=== PATIENT | female | born 1940 | race Caucasian/White ===

== ENCOUNTER → 2023-06-19 11:12 | Outpatient (REF) | payer MEDICARE, OTHER, SELFPAY | LOC: HWRAD 11:12 | PROVIDERS: ATTENDING PHYSICIAN Internal Medicine Geriatric Medicine | DX: K59.00 Constipation, unspecified (principal); I82.402 Acute embolism and thrombosis of unspecified deep veins of left lower extremity; Z48.815 Encounter for surgical aftercare following surgery on the digestive system | CPT/HCPCS: 71250; 74176 ==

== ENCOUNTER → 2023-10-19 10:51 | Outpatient (REF) | payer MEDICARE, OTHER, SELFPAY ==
[2023-10-19 12:18] LABS: % Basophils 0.5 % (0-2); % Eosinophils 2.8 % (0-6); % Immature Granulocytes 0.2 % (0-0.5); % Lymphocytes 23.8 % (20.5-51.1); % Monocytes 8.4 % (1.7-9.3); % Neutrophils 64.3 % (42.2-75.2); Absolute Eosinophils 0.1 10^3/uL (0-0.7); Absolute Monocytes 0.4 10^3/uL (0.1-0.6); Absolute Neutrophils 2.8 10^3/uL (1.4-6.5); Hematocrit 34.3 % (37.0-47.0); Hemoglobin 11.3 g/dL (12.0-16.0); Mean Corp Hgb Conc. 32.9 g/dL (33.0-37.0); Mean Corpuscular Hgb 32.4 pg (27.0-31.0); Mean Corpuscular Volume 98.3 fL (81.0-99.0); Mean Platelet Volume 8.8 fL (7.4-10.4); Nucleated Red Blood Cells % 0 %; Platelet Count 173 10^3/uL (130-400); Red Blood Cell Count 3.49 10^6/uL (4.20-5.40); Red Cell Dist. Width 14.2 % (11.5-14.5); White Blood Cell Count 4.3 10^3/uL (4.8-10.8)
[2023-10-19 12:44] LABS: ALT (SGPT) 16 U/L (0-35); AST (SGOT) 20 U/L (14-36); Albumin 3.5 g/dl (3.5-5.0); Alkaline Phosphatase 58 U/L (38-126); Blood Urea Nitrogen 28 mg/dl (7-17); Calcium 9.2 mg/dl (8.4-10.2); Carbon Dioxide 30 mmol/L (22-30); Chloride 102 mmol/L (98-107); Glucose 78 mg/dl (70-99); HDL Cholesterol 63 mg/dl; LDL Cholesterol, Calculated 88 mg/dl; Potassium 4.7 mmol/L (3.5-5.1); Sodium 135 mmol/L (135-145); Total Bilirubin 0.4 mg/dl (0.2-1.3); Total Cholesterol 171 mg/dl (50-199); Total Protein 5.6 g/dl (6.3-8.2); Triglyceride 104 mg/dl (10-149); Very Low Density Lipoprotein 20 mg/dl (0-30)
[2023-10-19 13:02] LABS: Vitamin D, 25-OH*** 49.1 ng/mL (30-80)
== END ==
LOC: OLABN 10:51
PROVIDERS: ATTENDING PHYSICIAN Internal Medicine Geriatric Medicine
DX: I10 Essential (primary) hypertension (principal); E78.5 Hyperlipidemia, unspecified; E55.9 Vitamin D deficiency, unspecified
CPT/HCPCS: 36415; 80053; 80061; 82306; 85025

== ENCOUNTER → 2023-10-25 10:06 | Outpatient (REF) | payer MEDICARE, OTHER, SELFPAY ==
[2023-10-25 10:48] LABS: Hematocrit 33.9 % (37.0-47.0); Hemoglobin 10.6 g/dL (12.0-16.0); Mean Corp Hgb Conc. 31.3 g/dL (33.0-37.0); Mean Corpuscular Hgb 31.5 pg (27.0-31.0); Mean Corpuscular Volume 100.9 fL (81.0-99.0); Mean Platelet Volume 8.9 fL (7.4-10.4); Platelet Count 169 10^3/uL (130-400); Red Blood Cell Count 3.36 10^6/uL (4.20-5.40); White Blood Cell Count 4.6 10^3/uL (4.8-10.8)
== END ==
LOC: OLABN 10:06
PROVIDERS: ATTENDING PHYSICIAN Internal Medicine Geriatric Medicine
DX: D64.9 Anemia, unspecified (principal)
CPT/HCPCS: 36415; 85027

== ENCOUNTER → 2024-04-18 09:35 | Outpatient (REF) | payer MEDICARE, OTHER, SELFPAY ==
[2024-04-18 10:21] LABS: % Basophils 0.2 % (0-2); % Eosinophils 2.1 % (0-6); % Immature Granulocytes 0.2 % (0-0.5); % Lymphocytes 25.9 % (20.5-51.1); % Neutrophils 62.6 % (42.2-75.2); Absolute Eosinophils 0.1 10^3/uL (0-0.7); Absolute Lymphocytes 1.2 10^3/uL (1.2-3.4); Absolute Monocytes 0.4 10^3/uL (0.1-0.6); Absolute Neutrophils 2.9 10^3/uL (1.4-6.5); Hematocrit 35.3 % (37.0-47.0); Hemoglobin 11.1 g/dL (12.0-16.0); Mean Corp Hgb Conc. 31.4 g/dL (33.0-37.0); Mean Corpuscular Hgb 32.1 pg (27.0-31.0); Mean Platelet Volume 9.1 fL (7.4-10.4); Nucleated Red Blood Cells % 0 %; Platelet Count 189 10^3/uL (130-400); Red Blood Cell Count 3.46 10^6/uL (4.20-5.40); White Blood Cell Count 4.7 10^3/uL (4.8-10.8)
[2024-04-18 10:36] LABS: ALT (SGPT) 22 U/L (0-35); AST (SGOT) 19 U/L (14-36); Albumin 3.4 g/dl (3.5-5.0); Alkaline Phosphatase 37 U/L (38-126); Blood Urea Nitrogen 25 mg/dl (7-17); Calcium 8.8 mg/dl (8.4-10.2); Carbon Dioxide 28 mmol/L (22-30); Chloride 105 mmol/L (98-107); Glucose 87 mg/dl (70-99); HDL Cholesterol 63 mg/dl; LDL Cholesterol, Calculated 81 mg/dl; Potassium 5.1 mmol/L (3.5-5.1); Sodium 139 mmol/L (135-145); Total Bilirubin 0.4 mg/dl (0.2-1.3); Total Cholesterol 162 mg/dl (50-199); Total Protein 5.4 g/dl (6.3-8.2); Triglyceride 92 mg/dl (10-149); Very Low Density Lipoprotein 18 mg/dl (0-30); eGFR > 60.00
[2024-04-18 10:50] LABS: Vitamin D, 25-OH*** 46.7 ng/mL (30-80)
== END ==
LOC: OLABN 09:35
PROVIDERS: ATTENDING PHYSICIAN Internal Medicine Geriatric Medicine
DX: I10 Essential (primary) hypertension (principal); E78.5 Hyperlipidemia, unspecified; E55.9 Vitamin D deficiency, unspecified
CPT/HCPCS: 36415; 80053; 80061; 82306; 85025

== ENCOUNTER → 2024-05-14 07:22 | Outpatient (REF) | payer MEDICARE, OTHER, SELFPAY | LOC: RAD 07:22 | PROVIDERS: ATTENDING PHYSICIAN Internal Medicine Geriatric Medicine | DX: I73.9 Peripheral vascular disease, unspecified (principal) | CPT/HCPCS: 93922; 93925 ==

== ENCOUNTER 2024-05-20 11:52 | Day surgery (SDC) | payer MEDICARE, OTHER, SELFPAY ==
[2024-05-20] VITALS (10 sets, daily range): BP systolic 109–156; BP diastolic 36–86; BMI 37.4
[2024-05-20 12:41] LABS: Hematocrit 40.5 % (37.0-47.0); Hemoglobin 12.7 g/dL (12.0-16.0); Mean Corp Hgb Conc. 31.4 g/dL (33.0-37.0); Mean Corpuscular Hgb 31.8 pg (27.0-31.0); Mean Corpuscular Volume 101.5 fL (81.0-99.0); Mean Platelet Volume 8.5 fL (7.4-10.4); Platelet Count 198 10^3/uL (130-400); Red Blood Cell Count 3.99 10^6/uL (4.20-5.40); Red Cell Dist. Width 13.7 % (11.5-14.5); White Blood Cell Count 5.4 10^3/uL (4.8-10.8)
[2024-05-20] MEDS: NSS 287 ML IV (12:52)
--- NOTE | 2024-05-20 12:58 | PTCARENOTE ---
Patient recd from [facility], accompanied by daughter, via ambulance transport, several personal blankets on patient and still co of cold gave more warm blankets that were applied to upper and lower extremity and pillow place under
legs at pt's request, lungs clear, pt obese and complete care noted, CVA and flaccid left side, Patient IS AAOX3 and making all requests and needs known, daughter remains at bedside. VSS, fluid infusing via left IV, B/L Lower extremity with edema
and reddened in color, without co of pain or discomfort. Pending procedure for angio with DR Santana, call light within reach of pt while in recovery.
[2024-05-20 13:00] LABS: APTT 23.3 Sec (23.4-35.0); INR 1.01; PT 13.6 Sec (11.4-14.6)
[2024-05-20 13:02] LABS: Blood Urea Nitrogen 21 mg/dl (7-17); Calcium 9.3 mg/dl (8.4-10.2); Carbon Dioxide 29 mmol/L (22-30); Chloride 99 mmol/L (98-107); Estimated Creatinine Clearance 58 ml/min; Glucose 139 mg/dl (70-99); Potassium 4.5 mmol/L (3.5-5.1); Sodium 135 mmol/L (135-145); eGFR > 60.00
--- NOTE | 2024-05-20 14:00 | PTCARENOTE ---
Patient incontinent of urine. Adult diaper/pull up removed and pericare provided. No skin breakdown noted. Purewick external female catheter applied.
--- NOTE | 2024-05-20 14:20 | PTCARENOTE ---
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 Patient said she gets a rash. Patient denies allergy to IV contrast. Patient was premedicated with Methylprednisolone 32 mg PO & Benadryl 50mg PO [facility] at 0930. ABENA Fontenot & Beny Abad, Anesthesiologist aware. No additional orders given at this time.
--- NOTE | 2024-05-20 14:41 | W.SUR.PREOP ---
Pre-Operative Surgical Note
-
I have examined this patient prior to the performance of the scheduled procedure.
The patient's condition is unchanged from the time of the current History and
Physical and the patient is able to undergo the scheduled procedure.
--- NOTE | 2024-05-20 17:14 | W.IMMPOSTOP ---
Surgical Immed Post Op Note
-
Primary Surgeon: Max
Assisting Surgeon: Miya
Pre-op Diagnosis: Chronic limb ischemia
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
Procedure Performed: Diagnostic angiogram
Anesthesia Type: Sedation/local
Specimen / Cultures: None
Estimated Blood Loss: 10 cc
Complications: None
Operative Findings: Microvascular disease with no focal stenotic lesions in L foot. No intervention performed.
--- NOTE | 2024-05-20 17:32 | OR.RPT ---
Operative Report
Operative Report
Date of Operation: 05/20/2024
Pre Op Diagnosis: Nonhealing left hallux ulcer
Post Op Diagnosis: Nonhealing left hallux ulcer
Procedure:
1.) Selective catheterization of third order left lower extremity arteries (superficial femoral, popliteal, anterior tibial and posterior tibial)
2.) Diagnostic aortobiiliac arteriogram
3.) Diagnostic left lower extremity arteriogram
4.) Ultrasound-guided percutaneous access to the right common femoral artery
Surgeon: Zach Santana III, MD
Utility Systems Repairer Operator: Jarad Holliday MD PGY1
Anesthesia: Sedation with local
Fluoroscopy:
17.5 min
139 mGy
40.29 Gy.cm2
Complications: None
Estimated Blood Loss: Less than 10 cc
History and Indications for Procedure: 84-year-old female nonambulatory halfway patient with nonhealing left hallux ulceration
Procedure in Detail: Faith Krueger was correctly identified and placed supine on the operating table. After adequate induction of anesthesia the bilateral groins were prepped and draped in the usual sterile fashion. A timeout was performed with
the nursing and anesthesia staff confirming the patient's identity as well as the nature and laterality of the procedure.
The right common femoral artery was identified under ultrasound guidance. The artery was patent. The superior and inferior aspects of the femoral head were identified with radiographic guidance and marked at the skin level. The proposed puncture
site was infiltrated with local anesthesia. Under ultrasound guidance we accessed the right common femoral artery with a micropuncture needle and upsized to a 5 Fr sheath over a Bentson wire. The wire and a ShepherAuctionata hook flush catheter were
advanced into the distal abdominal aorta and a diagnostic aorto-biiliac arteriogram was performed:
AORTO-ILIAC ARTERIOGRAM:
Aorta: Patent with no significant stenosis identified
Right common iliac artery: Patent with no significant stenosis identified
Right external iliac artery: Patent with no significant stenosis identified
Left common iliac artery: Patent with no significant stenosis identified
Left external iliac artery: Patent with no significant stenosis identified
Under roadmap guidance using a Glidewire and the Shepherds hook catheter we selected the left common iliac artery and then the external iliac artery. A catheter was tracked up and over the aortic bifurcation and placed in the distal external iliac
artery. A diagnostic left lower extremity arteriogram was then performed which demonstrated the following:
LEFT LOWER EXTREMITY:
Common femoral artery: Patent with no significant stenosis identified
Profunda femoral artery: Patent with no significant stenosis identified
Superficial femoral artery: Patent with no significant stenosis identified
Popliteal artery: Patent with no significant stenosis identified
Anterior tibial artery: Patent. High takeoff from the popliteal artery behind the knee at the level of the tibial plateau. No significant stenosis identified. Small vessel disease identified in the foot.
Tibioperoneal trunk: Patent with no significant stenosis identified
Peroneal artery: Diffusely small diameter. Patent to the ankle. Sluggish flow.
Posterior tibial artery: Patent. No significant stenosis identified. Small vessel disease identified in the foot.
In an effort to more clearly evaluate the tibial arteries as well as examine flow into the foot I proceeded as follows: Systemic heparin was administered. A WellFXq wire was advanced into the superficial femoral artery and popliteal through the
latham's hook catheter. A 5 Thai 90 cm sheath was then brought up and over the aortic bifurcation and the radiopaque tip was positioned in the popliteal artery behind the knee.
Using a Quickcross catheter and Glidewire under roadmap guidance I then selected the anterior tibial artery. The wire and catheter were advanced to the distal anterior tibial artery and an arteriogram was performed. The anterior tibial artery was
patent. The artery crossed the ankle into the foot. It appeared that the artery then occluded and that the dorsalis pedis artery was occluded with no distal reconstitution. Small branches were patent into the foot which communicated with plantar
branches from the posterior tibial artery. No intervention was performed.
I then pulled the catheter back into the popliteal artery. Once again using a Quickcross catheter and Glidewire under roadmap guidance I selected the tibioperoneal trunk and then the posterior tibial artery. The catheter tip was positioned in the
proximal posterior tibial artery. An arteriogram was performed which demonstrated patency of the tibioperoneal trunk and posterior tibial artery with no significant stenosis identified. The artery continued into the foot and there was a single
dominant plantar branch identified which supplied flow to the forefoot and hallux. Digital branches were identified from this plantar branch distribution. No intervention was performed.
Satisfied with this diagnostic result we concluded the procedure. The sheath tip was pulled back into the right external iliac artery. Protamine was administered. The sheath was pulled and direct manual pressure was held over the puncture site.
Hemostasis was achieved. A sterile dressing was applied.
The patient tolerated the procedure well and was taken to the recovery area in stable condition.
Attestation: I was present and responsible for the entire procedure.
Signed:
Zach Santana III, MD
[facility] Vascular Surgery
[phone] (cwus)
[2024-05-20] MEDS: CYMBALTA DELAYED RELEASE 30 MG PO (19:32)
[2024-05-20] MEDS: LIPITOR 40 MG PO (19:32)
[2024-05-20] MEDS: PEPCID 20 MG PO (19:32)
[2024-05-20] MEDS: DESYREL 50 MG PO (21:33)
[2024-05-20] MEDS: NEURONTIN 400 MG PO (21:33)
[2024-05-20] MEDS: LIORESAL 5 MG PO (21:33)
[2024-05-20] MEDS: ULTRAM 25 MG PO (21:33)
[2024-05-21 03:02] VITALS: BP 123/70
[2024-05-21 04:53] VITALS: BMI 37.4
[2024-05-21] MEDS: ULTRAM 25 MG PO (05:35)
[2024-05-21 06:59] VITALS: BP 134/71
[2024-05-21 07:04] LABS: Blood Urea Nitrogen 27 mg/dl (7-17); Calcium 8.7 mg/dl (8.4-10.2); Carbon Dioxide 27 mmol/L (22-30); Chloride 102 mmol/L (98-107); Estimated Creatinine Clearance 51 ml/min; Glucose 132 mg/dl (70-99); Potassium 4.6 mmol/L (3.5-5.1); Sodium 138 mmol/L (135-145); eGFR > 60.00
--- NOTE | 2024-05-21 07:15 | W.PN.VS ---
Today's Communication / Plan
-
See below.
Assessment/Plan
-
Assessment: 84-year-old female POD #1 Selective catheterization of third order left lower extremity arteries (superficial femoral, popliteal, anterior tibial and posterior tibial), Diagnostic aortobiiliac arteriogram, Diagnostic left lower extremity
arteriogram, Ultrasound-guided percutaneous access to the right common femoral artery who required overnight stay for observation due to care home unable to provide medical transport back to facility following SDS procedure.
Plan:
Discharge to care home facility
Follow-up ultrasound and appointment placed in discharge instructions
Subjective Data
-
Date of Service: May 21, 2024
Patient seen and examined at bedside, offers no complaints. Requesting discharge as soon as possible. Denies pain at right groin puncture site. Denies nausea, vomiting, fever, and chills.
Objective Data
-
Vital Signs
Temp Pulse Resp BP Pulse Ox
98.1 F 102 18 134/71 94
05/21/24 06:59 05/21/24 06:59 05/21/24 06:59 05/21/24 06:59 05/21/24 06:59
Intake and Output
05/20/24 05/21/24 05/22/24
06:59 06:59 06:59
Intake Total 640 / 640
Output Total 475 / 475
Balance 165 / 165
Intake:
Oral fluids 240 / 240
IV fluids (Total) 400 / 400
NSS 100 / 100
Output:
Urine, Voided 475 / 475
Other:
Number of approximated SMALL 1
amounts of urine
How many times incontinent 1
SATURATED amount urine
Lab Results
05/21/24 04:50
Calcium 8.7 mg/dl (8.4-10.2) 05/21/24 04:50
Physical Exam
-
No apparent distress, resting in bed comfortably
No dyspnea on room air
ABD rotund, nontender, nondistended
Right groin puncture site CDI, no evidence of hematoma, all surrounding warm and soft
Bilateral feet warm, left foot dressing CDI
[2024-05-21 07:37] LABS: Hematocrit 38.1 % (37.0-47.0); Hemoglobin 12.2 g/dL (12.0-16.0); Mean Corpuscular Hgb 31.8 pg (27.0-31.0); Mean Corpuscular Volume 99.2 fL (81.0-99.0); Mean Platelet Volume 8.7 fL (7.4-10.4); Platelet Count 254 10^3/uL (130-400); Red Blood Cell Count 3.84 10^6/uL (4.20-5.40); Red Cell Dist. Width 14.3 % (11.5-14.5); White Blood Cell Count 9.5 10^3/uL (4.8-10.8)
[2024-05-21] MEDS: ZESTRIL 10 MG PO (07:54)
[2024-05-21] MEDS: LIORESAL 5 MG PO (07:55)
[2024-05-21] MEDS: PEPCID 20 MG PO (07:55)
[2024-05-21] MEDS: NEURONTIN 300 MG PO (07:55)
--- NOTE | 2024-05-21 09:18 | CM ---
Patient seen at bedside
IA Completed.
Outpatient Status
s/p Procedure:
1.) Selective catheterization of third order left lower extremity arteries (superficial femoral, popliteal, anterior tibial and posterior tibial)
2.) Diagnostic aortobiiliac arteriogram
3.) Diagnostic left lower extremity arteriogram
4.) Ultrasound-guided percutaneous access to the right common femoral artery
Patient [facility] resident of [facility], non-ambulatory, wheelchair
Mandeep WELLER, DME: wheelchair, walker
PCP: Mavis Shah
Pharmacy: [facility]
PLAN: Discharge today to [facility] in admissions notified of time
[facility]
Report #: [phone]
Fax #: [phone]
Ambulance forms on chart - 12:30pm transport
[2024-05-21 10:56] VITALS: BP 144/87
== END 2024-05-21 13:00 ==
LOC: CATH 11:52
PROVIDERS: Nurse Practitioner Acute Care; ATTENDING PHYSICIAN Surgery Vascular Surgery; FAMILY PHYSICIAN Internal Medicine Geriatric Medicine
DX: I70.245 Atherosclerosis of native arteries of left leg with ulceration of other part of foot (principal); Z79.899 Other long term (current) drug therapy; Z86.73 Personal history of transient ischemic attack (TIA), and cerebral infarction without residual deficits; I48.91 Unspecified atrial fibrillation; Z86.718 Personal history of other venous thrombosis and embolism
CPT/HCPCS: 36247; 75625; 75716; 80048; 85027; 85610; 85730; 87070; 93005; C1769; C1894; Q9967

== ENCOUNTER → 2024-07-14 08:47 | Outpatient (REF) | payer MEDICARE, OTHER, SELFPAY | LOC: RAD 08:47 | PROVIDERS: ATTENDING PHYSICIAN Registered Nurse; FAMILY PHYSICIAN Internal Medicine Geriatric Medicine | DX: I70.245 Atherosclerosis of native arteries of left leg with ulceration of other part of foot (principal) | CPT/HCPCS: 93922; 93925 ==

== ENCOUNTER 2024-09-02 17:56 | Emergency (ER) | payer MEDICARE, OTHER, SELFPAY ==
[2024-09-02 18:03] VITALS: BP 125/57
--- NOTE | 2024-09-02 18:57 | ED.GENMED ---
History of Present Illness
General
Chief Complaint: Musculo-Skeletal Complaint
Time Seen by Provider: 09/02/24 18:28
History of Present Illness
History of Present Illness:
Patient is a 84-year-old woman presenting to the emergency department with concern for tib-fib fracture. Patient states that she lives in [facility]. She is a full assist. I did transfer her to use the bathroom. Patient does not ambulate.
She states that her leg was hit by a Kalpesh lift she had pain since then. Initially declined x-rays however with ongoing pain they obtain x-rays at [facility]. Per the paperwork that patient arrived with her x-ray of her knee was unremarkable.
X-ray of the ankle did show a distal tib-fib fracture with no displacement. Patient denies any numbness tingling. Very mild pain.
Past History
Past History
ED Past Medical History: CHF and HTN
ED Past Surgical History: Bowel resection
Social History
Tobacco: Non-smoker
Alcohol: None
Phy Exam
Physical Exam
Physical Exam:
GENERAL: in no acute distress
HEENT: normocephalic, extraocular movements intact, moist oral mucosa
NECK: normal inspection
RESPIRATORY: no respiratory distress, clear to auscultation bilaterally
CARDIOVASCULAR: regular rate and rhythm
ABDOMEN/: soft, non-distended, non-tender to palpation, no rebound or guarding
EXTREMITIES: Bilateral lower extremity with swelling, mild tenderness to the left ankle
NEUROLOGIC: awake and alert, moves all extremities
SKIN: warm
Course
Orders/Labs/Results
Orders:
Orders
09/02/24 18:30
Splints/Slings/Crut- Treatment ONCE
Location: Left
Type of Splint: Short Leg
Comment: short and sugar tong
Vital Signs
Initial and Last Documented VS:
Initial Vital Signs
Temp Pulse Resp BP Pulse Ox
97.9 F 78 16 125/57 98
09/02/24 18:03 09/02/24 18:03 09/02/24 18:03 09/02/24 18:03 09/02/24 18:03
Last Documented Vital Signs
Temp Pulse Resp BP Pulse Ox
97.9 F 78 16 125/57 98
09/02/24 18:03 09/02/24 18:03 09/02/24 18:03 09/02/24 18:03 09/02/24 18:03
Procedures
Splint Check
Splint checked by provider?: Yes
Circulation/Movement/Sensation post splint application: brisk cap refill
Splinting/Sling Placement
Left Leg:
Pre-splint extermity exam: neurovascular intact
Type of splint: sugar-tong and posterior short leg
Splint material: fiberglass
Splint checked by provider?: Yes
MDM/Problems Addressed
Differential Diagnosis Includes:
Patient is a 84-year-old woman [facility] with a distal tib-fib fracture with no displacement. On arrival patient's vitals are unremarkable and exam does show bilateral lower extremity swelling with mild
tenderness of the left ankle. I did review the x-ray of the report. Will place patient in a sugar-tong and posterior short splint. Patient advised to be nonweightbearing. She does state that she is mostly bedbound/wheelchair-bound. Occasionally
will stand on her feet to pivot to the toilet. I did advise patient to place weight on her right leg when this is occurring with her two-person assist or to avoid standing if it will be a problem. Patient will follow-up with orthopedic surgery.
*Critical Care Note
Total Time (30-74mins, 75-104mins- exclusive of procedures): Not Applicable
ED Attending Note
-
Portions of this chart may have been created with voice recognition software.� Occasional wrong word or��sound alike� substitutions may have occurred due to the inherent limitations of voice recognition software.
Discharge Plan
Departure
Patient Disposition: Home (Routine Discharge)
Date of Disposition: 09/02/24
Time of Disposition: 19:19
Patient with high blood pressure during this ER visit?: No
Discharge Problem:
Tibia/fibula fracture
Instructions: Splint Care
Prescriptions:
No Action
furosemide 40 mg Tablet
40 mg PO SUTUTH@0830
trazodone 50 mg Tablet
50 mg PO HS
sennosides-docusate sodium 8.6-50 mg Tablet
2 tab-cap PO SUTUTH@829
tramadol 50 mg Tablet
25 mg PO TID@629,1329,2029
acetaminophen 650 mg Tablet Extended Release
1,300 mg PO BID@
lisinopril 10 mg Tablet
10 mg PO DAILY
warfarin [Jantoven] 5 mg Tablet
5 mg PO SUMOWETHSA
gabapentin 300 mg Capsule
300 mg PO DAILY
polyethylene glycol 3350 17 gram/dose Powder
17 g PO SUTUTH@0830
duloxetine 30 mg Capsule,Delayed Release(Dr/Ec)
30 mg PO HS@1830
cholecalciferol (vitamin D3) 1,250 mcg (50,000 unit) Capsule
1,250 mcg PO QMONTH@0830
Rx Instructions:
03/26/2023, taken on Sunday of the month.
baclofen 5 mg Tablet
5 mg PO BID
acetaminophen [Tylenol] 325 mg Tablet
325 mg PO DAILYPRN PRN (Reason: mild pain/fever>100.4)
magnesium hydroxide [Milk of Magnesia] 400 mg/5 mL Suspension
30 ml PO HSPRN PRN (Reason: constipation)
hydrocortisone 1 % Cream
1 applic TOPICAL BID PRN (Reason: apply to back, arms, legs)
bisacodyl 10 mg Suppository
10 mg IN DAILY PRN (Reason: q 3 days when no and MOM/lactulose ineffective)
nitroglycerin 0.4 mg Tablet, Sublingual
0.4 mg SUBLINGUAL Q5-15M PRN (Reason: chest pain)
nystatin 100,000 unit/gram Powder
1 applic TOPICAL BID PRN (Reason: apply to abdominal folds or B/L groin)
epinephrine 0.3 mg/0.3 mL Auto-Injector
0.3 mg IM PRN PRN (Reason: anaphylaxis)
Rx Instructions:
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
benzocaine-menthol 6-10 mg Lozenge
1 miah MUCOUS MEMBRANE Q2HPRN PRN (Reason: itchy throat/sore throat)
phenylephrine-cocoa butter 0.25-88.44 % Suppository
1 supp IN HS PRN (Reason: hemorroidal pain)
naloxone 4 mg/actuation [place],Non-Aerosol
1 spray INTRANASAL DAILYPRN PRN (Reason: opioid overdose)
Rx Instructions:
03/26/2023, 1 dose as needed for opioid overdose.
atorvastatin 40 mg Tablet
40 mg PO QPM
gabapentin 400 mg Capsule
400 mg PO HS
Pepcid Complete 10-800-165 mg Tablet,Chewable
1 tab PO BID
potassium chloride 20 mEq Tablet Extended Release
20 meq PO SUTUTH
diphenhydramine HCl 50 mg Capsule
50 mg PO ONCE
Patient Comments:
given by [facility] pre procedure due to Shellfish allergy
warfarin 2.5 mg Tablet
2.5 mg PO TUFR
Referrals:
Sathya Shah MD [Family Provider] -
Alex Verma MD [Active] - Call in 1-3 days for appt
Activity Restrictions/Additional Instructions:
You were seen in the Emergency Department today for A fracture of your tibia and fibula. Please make sure that you do not place any weight on your left leg. Please follow-up with orthopedic surgery.
We would like for you to follow up with your primary care physician for further evaluation. If you experience fever, worsening of your symptoms, or develop any other new or concerning symptoms, please return to the Emergency Department immediately.
Please see the attached sheet for additional information.
Interventions
Interventions:
*Risk Screen - Suicide Last Done: 09/02/24 18:03
*General Assessment Last Done: 09/02/24 18:03
*Neglect/Abuse Screening Last Done: 09/02/24 18:03
*ED COVID-19 Vaccine History Last Done: 09/02/24 18:03
Discharge Date and Time
Print Language: GREEK
== END 2024-09-02 21:34 | disposition home or self-care (01) ==
LOC: EMR 17:56
PROVIDERS: EMERGENCY PHYSICIAN Student in an Organized Health Care Education/Training Program; FAMILY PHYSICIAN Internal Medicine Geriatric Medicine
DX: S82.302A Unspecified fracture of lower end of left tibia, initial encounter for closed fracture (principal); S82.402A Unspecified fracture of shaft of left fibula, initial encounter for closed fracture; W24.0XXA Contact with lifting devices, not elsewhere classified, initial encounter; I11.0 Hypertensive heart disease with heart failure; I50.9 Heart failure, unspecified
CPT/HCPCS: 29515; 99283

== ENCOUNTER 2024-09-10 16:43 | Emergency (ER) | payer MEDICARE, OTHER, SELFPAY ==
[2024-09-10 16:47] VITALS: BP 121/59
[2024-09-10 18:46] VITALS: BP 122/72
[2024-09-10 19:00] VITALS: BP 134/65
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
[2024-09-10 21:00] VITALS: BP 147/76
== END 2024-09-10 23:02 ==
LOC: EMR 16:43
PROVIDERS: EMERGENCY PHYSICIAN Emergency Medicine; FAMILY PHYSICIAN Internal Medicine Geriatric Medicine
DX: M79.605 Pain in left leg (principal); W19.XXXA Unspecified fall, initial encounter; I69.344 Monoplegia of lower limb following cerebral infarction affecting left non-dominant side; I48.91 Unspecified atrial fibrillation; I11.0 Hypertensive heart disease with heart failure; I50.9 Heart failure, unspecified; Z79.01 Long term (current) use of anticoagulants
CPT/HCPCS: 99284; 72192; 73700

== ENCOUNTER → 2024-09-13 08:51 | Outpatient (REF) | payer MEDICARE, OTHER, SELFPAY ==
[2024-09-13 10:11] LABS: % Basophils 0.4 % (0-2); % Eosinophils 2.4 % (0-6); % Immature Granulocytes 0.2 % (0-0.5); % Lymphocytes 20.9 % (20.5-51.1); % Monocytes 8.3 % (1.7-9.3); % Neutrophils 67.8 % (42.2-75.2); Absolute Eosinophils 0.1 10^3/uL (0-0.7); Absolute Lymphocytes 1.1 10^3/uL (1.2-3.4); Absolute Monocytes 0.4 10^3/uL (0.1-0.6); Absolute Neutrophils 3.4 10^3/uL (1.4-6.5); Hematocrit 33.7 % (37.0-47.0); Hemoglobin 10.8 g/dL (12.0-16.0); Mean Corpuscular Hgb 29.8 pg (27.0-31.0); Mean Corpuscular Volume 93.1 fL (81.0-99.0); Mean Platelet Volume 9.2 fL (7.4-10.4); Nucleated Red Blood Cells % 0 %; Platelet Count 182 10^3/uL (130-400); Red Blood Cell Count 3.62 10^6/uL (4.20-5.40); Red Cell Dist. Width 14.9 % (11.5-14.5)
[2024-09-13 10:44] LABS: Urine Albumin Negative (Neg - Trace); Urine Bilirubin Negative (Negative); Urine Character Clear (Clear); Urine Color Yellow; Urine Glucose Negative (Negative); Urine Ketone Negative (Negative); Urine Leukocyte 1+ (Negative); Urine Nitrite Negative (Negative); Urine Occult Blood Negative (Negative); Urine Urobilinogen Negative (Neg - 1+)
[2024-09-13 11:04] LABS: Urine Squamous Cell >30 /LPF (Few)
[2024-09-13 11:05] LABS: Urine Bacteria Few (Negative); Urine Red Blood Cell 0-2 /HPF (0-2)
[2024-09-13 11:22] LABS: ALT (SGPT) 16 U/L (0-35); AST (SGOT) 16 U/L (14-36); Albumin 3.6 g/dl (3.5-5.0); Alkaline Phosphatase 58 U/L (38-126); Blood Urea Nitrogen 30 mg/dl (7-17); Calcium 8.8 mg/dl (8.4-10.2); Carbon Dioxide 28 mmol/L (22-30); Chloride 105 mmol/L (98-107); Glucose 94 mg/dl (70-99); Potassium 4.6 mmol/L (3.5-5.1); Sodium 139 mmol/L (135-145); Total Bilirubin 0.5 mg/dl (0.2-1.3); Total Protein 5.6 g/dl (6.3-8.2); eGFR > 60.00
== END ==
LOC: OLABN 08:51
PROVIDERS: ATTENDING PHYSICIAN Internal Medicine Geriatric Medicine
DX: R35.0 Frequency of micturition (principal); I10 Essential (primary) hypertension; E78.00 Pure hypercholesterolemia, unspecified; R10.30 Lower abdominal pain, unspecified
CPT/HCPCS: 36415; 80053; 81003; 81015; 85025; 87086; 87088; 87186

== ENCOUNTER → 2024-09-15 08:34 | Outpatient (REF) | payer MEDICARE, OTHER, SELFPAY | LOC: HWRAD 08:34 | PROVIDERS: ATTENDING PHYSICIAN Internal Medicine Geriatric Medicine | DX: S09.90XA Unspecified injury of head, initial encounter (principal) | CPT/HCPCS: 70450 ==

== ENCOUNTER → 2024-10-17 11:00 | Outpatient (REF) | payer MEDICARE, OTHER, SELFPAY ==
[2024-10-17 12:02] LABS: % Basophils 0.4 % (0-2); % Eosinophils 1.8 % (0-6); % Immature Granulocytes 0.2 % (0-0.5); % Monocytes 8.7 % (1.7-9.3); % Neutrophils 65.9 % (42.2-75.2); Absolute Eosinophils 0.1 10^3/uL (0-0.7); Absolute Lymphocytes 1.2 10^3/uL (1.2-3.4); Absolute Monocytes 0.4 10^3/uL (0.1-0.6); Absolute Neutrophils 3.3 10^3/uL (1.4-6.5); Hematocrit 33.9 % (37.0-47.0); Hemoglobin 10.8 g/dL (12.0-16.0); Mean Corp Hgb Conc. 31.9 g/dL (33.0-37.0); Mean Corpuscular Hgb 29.9 pg (27.0-31.0); Mean Corpuscular Volume 93.9 fL (81.0-99.0); Mean Platelet Volume 9.1 fL (7.4-10.4); Nucleated Red Blood Cells % 0 %; Platelet Count 186 10^3/uL (130-400); Red Blood Cell Count 3.61 10^6/uL (4.20-5.40); Red Cell Dist. Width 17.2 % (11.5-14.5); White Blood Cell Count 5.1 10^3/uL (4.8-10.8)
[2024-10-17 13:32] LABS: ALT (SGPT) 13 U/L (0-35); AST (SGOT) 16 U/L (14-36); Albumin 3.5 g/dl (3.5-5.0); Alkaline Phosphatase 54 U/L (38-126); Blood Urea Nitrogen 27 mg/dl (7-17); Calcium 8.7 mg/dl (8.4-10.2); Carbon Dioxide 28 mmol/L (22-30); Chloride 108 mmol/L (98-107); Glucose 85 mg/dl (70-99); HDL Cholesterol 66 mg/dl; LDL Cholesterol, Calculated 78 mg/dl; Potassium 4.9 mmol/L (3.5-5.1); Sodium 138 mmol/L (135-145); Total Bilirubin 0.4 mg/dl (0.2-1.3); Total Cholesterol 165 mg/dl (50-199); Total Protein 5.6 g/dl (6.3-8.2); Triglyceride 105 mg/dl (10-149); Very Low Density Lipoprotein 21 mg/dl (0-30); eGFR > 60.00
[2024-10-17 13:39] LABS: Vitamin D, 25-OH*** 48.3 ng/mL (30-80)
== END ==
LOC: OLABN 11:00
PROVIDERS: ATTENDING PHYSICIAN Internal Medicine Geriatric Medicine
DX: I10 Essential (primary) hypertension (principal); E78.5 Hyperlipidemia, unspecified; E55.9 Vitamin D deficiency, unspecified
CPT/HCPCS: 36415; 80053; 80061; 82306; 85025

== ENCOUNTER → 2024-11-18 12:55 | Outpatient (REF) | payer MEDICARE, OTHER, SELFPAY | LOC: RAD 12:55 | PROVIDERS: ATTENDING PHYSICIAN Physician Assistant | DX: Z01.810 Encounter for preprocedural cardiovascular examination (principal); I70.245 Atherosclerosis of native arteries of left leg with ulceration of other part of foot; L97.519 Non-pressure chronic ulcer of other part of right foot with unspecified severity | CPT/HCPCS: 93922; 93926; 93971 ==

== ENCOUNTER → 2024-12-08 11:50 | Outpatient (REF) | payer MEDICARE, OTHER, SELFPAY | LOC: WOUND 11:50 | PROVIDERS: ATTENDING PHYSICIAN Surgery; FAMILY PHYSICIAN Internal Medicine Geriatric Medicine | DX: T24.311A Burn of third degree of right thigh, initial encounter (principal); L03.115 Cellulitis of right lower limb; I73.9 Peripheral vascular disease, unspecified; Z79.01 Long term (current) use of anticoagulants; X10.0XXA Contact with hot drinks, initial encounter | CPT/HCPCS: 99203 ==

== ENCOUNTER → 2024-12-16 10:56 | Outpatient (REF) | payer MEDICARE, OTHER, SELFPAY | LOC: WOUND 10:56 | PROVIDERS: ATTENDING PHYSICIAN Surgery; FAMILY PHYSICIAN Internal Medicine Geriatric Medicine | DX: T24.311A Burn of third degree of right thigh, initial encounter (principal); L03.115 Cellulitis of right lower limb; I73.9 Peripheral vascular disease, unspecified; Z79.01 Long term (current) use of anticoagulants; X10.0XXA Contact with hot drinks, initial encounter | CPT/HCPCS: 99213 ==

== ENCOUNTER → 2024-12-23 10:19 | Outpatient (REF) | payer MEDICARE, OTHER, SELFPAY | LOC: WOUND 10:19 | PROVIDERS: ATTENDING PHYSICIAN Surgery | DX: T24.311A Burn of third degree of right thigh, initial encounter (principal); L03.115 Cellulitis of right lower limb; I73.9 Peripheral vascular disease, unspecified; Z79.01 Long term (current) use of anticoagulants; X10.0XXA Contact with hot drinks, initial encounter | CPT/HCPCS: 11043; 11046 ==

== ENCOUNTER → 2024-12-24 11:36 | Outpatient (REF) | payer MEDICARE, OTHER, SELFPAY ==
[2024-12-24 12:45] LABS: INR 4.59; PT 43.5 Sec (11.4-14.6)
== END ==
LOC: OLABN 11:36
PROVIDERS: ATTENDING PHYSICIAN Internal Medicine Geriatric Medicine
DX: I48.91 Unspecified atrial fibrillation (principal)
CPT/HCPCS: 85610

== ENCOUNTER → 2025-01-01 10:43 | Outpatient (REF) | payer MEDICARE, OTHER, SELFPAY | LOC: WOUND 10:43 | PROVIDERS: ATTENDING PHYSICIAN Surgery; FAMILY PHYSICIAN Internal Medicine Geriatric Medicine | DX: T24.311D Burn of third degree of right thigh, subsequent encounter (principal); L03.115 Cellulitis of right lower limb; I73.9 Peripheral vascular disease, unspecified; Z79.01 Long term (current) use of anticoagulants; X08.8XXD Exposure to other specified smoke, fire and flames, subsequent encounter | CPT/HCPCS: 11042; 11043; 11045; 11046 ==

== ENCOUNTER → 2025-01-12 10:58 | Outpatient (REF) | payer MEDICARE, OTHER, SELFPAY | LOC: WOUND 10:58 | PROVIDERS: ATTENDING PHYSICIAN Surgery; FAMILY PHYSICIAN Internal Medicine Geriatric Medicine | DX: T24.311A Burn of third degree of right thigh, initial encounter (principal); L03.115 Cellulitis of right lower limb; I73.9 Peripheral vascular disease, unspecified; Z79.01 Long term (current) use of anticoagulants; X10.0XXA Contact with hot drinks, initial encounter | CPT/HCPCS: 99213 ==

== ENCOUNTER → 2025-01-15 10:37 | Outpatient (REF) | payer MEDICARE, OTHER, SELFPAY ==
[2025-01-15 11:20] LABS: INR 4.39; PT 42.1 Sec (11.4-14.6)
== END ==
LOC: OLABN 10:37
PROVIDERS: ATTENDING PHYSICIAN Internal Medicine Geriatric Medicine
DX: I48.91 Unspecified atrial fibrillation (principal)
CPT/HCPCS: 36415; 85610

== ENCOUNTER 2025-01-16 08:35 | Emergency (ER) | payer MEDICARE, OTHER, SELFPAY ==
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
[2025-01-16 08:50] VITALS: BP 145/85; BMI 39.4
[2025-01-16 09:17] LABS: Hematocrit 26.3 % (37.0-47.0); Hemoglobin 8.3 g/dL (12.0-16.0); Mean Corp Hgb Conc. 31.6 g/dL (33.0-37.0); Mean Corpuscular Volume 98.9 fL (81.0-99.0); Platelet Count 219 10^3/uL (130-400); Red Cell Dist. Width 14.8 % (11.5-14.5)
[2025-01-16 09:30] LABS: INR 3.09; PT 31.7 Sec (11.4-14.6)
[2025-01-16 10:54] VITALS: BP 133/55
[2025-01-16 12:02] VITALS: BP 127/66
== END 2025-01-16 12:06 ==
LOC: EMR 08:35
PROVIDERS: EMERGENCY PHYSICIAN Emergency Medicine; FAMILY PHYSICIAN Internal Medicine Geriatric Medicine
DX: S71.101A Unspecified open wound, right thigh, initial encounter (principal); X10.0XXA Contact with hot drinks, initial encounter; E78.5 Hyperlipidemia, unspecified; I11.0 Hypertensive heart disease with heart failure; I50.9 Heart failure, unspecified; I48.91 Unspecified atrial fibrillation; Z79.01 Long term (current) use of anticoagulants; Z86.718 Personal history of other venous thrombosis and embolism; I69.354 Hemiplegia and hemiparesis following cerebral infarction affecting left non-dominant side
CPT/HCPCS: 99283; 85027; 85610

== ENCOUNTER → 2025-01-16 09:55 | Outpatient (REF) | payer MEDICARE, OTHER, SELFPAY ==
[2025-01-16 11:04] LABS: Hematocrit 23.6 % (37.0-47.0); Hemoglobin 7.2 g/dL (12.0-16.0); Mean Corp Hgb Conc. 30.5 g/dL (33.0-37.0); Mean Corpuscular Volume 98.3 fL (81.0-99.0); Nucleated Red Blood Cells % 0 %; Platelet Count 219 10^3/uL (130-400); Red Cell Dist. Width 14.8 % (11.5-14.5)
== END ==
LOC: OLABN 09:55
PROVIDERS: ATTENDING PHYSICIAN Internal Medicine Geriatric Medicine
DX: I48.91 Unspecified atrial fibrillation (principal); I10 Essential (primary) hypertension
CPT/HCPCS: 36415; 85025

== ENCOUNTER → 2025-01-19 11:52 | Outpatient (REF) | payer MEDICARE, OTHER, SELFPAY ==
[2025-01-19 12:33] LABS: Hematocrit 27.0 % (37.0-47.0); Hemoglobin 8.2 g/dL (12.0-16.0); Mean Corp Hgb Conc. 30.4 g/dL (33.0-37.0); Mean Corpuscular Volume 101.9 fL (81.0-99.0); Platelet Count 270 10^3/uL (130-400); Red Cell Dist. Width 14.8 % (11.5-14.5)
== END ==
LOC: OLABN 11:52
PROVIDERS: ATTENDING PHYSICIAN Internal Medicine Geriatric Medicine
DX: I10 Essential (primary) hypertension (principal)
CPT/HCPCS: 36415; 85027

== ENCOUNTER → 2025-01-27 09:21 | Outpatient (REF) | payer MEDICARE, OTHER, SELFPAY | LOC: WOUND 09:21 | PROVIDERS: ATTENDING PHYSICIAN Surgery; FAMILY PHYSICIAN Internal Medicine Geriatric Medicine | DX: T24.311A Burn of third degree of right thigh, initial encounter (principal); L03.115 Cellulitis of right lower limb; I73.9 Peripheral vascular disease, unspecified; Z79.01 Long term (current) use of anticoagulants; X10.0XXA Contact with hot drinks, initial encounter | CPT/HCPCS: 99213 ==

== ENCOUNTER → 2025-02-10 13:49 | Outpatient (REF) | payer MEDICARE, OTHER, SELFPAY | LOC: WOUND 13:49 | PROVIDERS: ATTENDING PHYSICIAN Surgery; FAMILY PHYSICIAN Internal Medicine Geriatric Medicine | DX: T24.311A Burn of third degree of right thigh, initial encounter (principal); L03.115 Cellulitis of right lower limb; I73.9 Peripheral vascular disease, unspecified; Z79.01 Long term (current) use of anticoagulants; X10.0XXA Contact with hot drinks, initial encounter | CPT/HCPCS: 99213 ==

== ENCOUNTER → 2025-02-24 13:37 | Outpatient (REF) | payer MEDICARE, OTHER, SELFPAY | LOC: WOUND 13:37 | PROVIDERS: ATTENDING PHYSICIAN Surgery; FAMILY PHYSICIAN Internal Medicine Geriatric Medicine | DX: T24.311A Burn of third degree of right thigh, initial encounter (principal); L03.115 Cellulitis of right lower limb; I73.9 Peripheral vascular disease, unspecified; Z79.01 Long term (current) use of anticoagulants; X10.0XXA Contact with hot drinks, initial encounter | CPT/HCPCS: 99213 ==

== ENCOUNTER → 2025-03-10 14:19 | Outpatient (REF) | payer MEDICARE, OTHER, SELFPAY | LOC: WOUND 14:19 | PROVIDERS: ATTENDING PHYSICIAN Surgery; FAMILY PHYSICIAN Internal Medicine Geriatric Medicine | DX: T24.311A Burn of third degree of right thigh, initial encounter (principal); L03.115 Cellulitis of right lower limb; I73.9 Peripheral vascular disease, unspecified; Z79.01 Long term (current) use of anticoagulants; X10.0XXA Contact with hot drinks, initial encounter | CPT/HCPCS: 99213 ==

== ENCOUNTER 2025-04-07 12:22 | Outpatient (REF) | payer MEDICARE, OTHER, SELFPAY | END 2025-04-07 23:59 | disposition home or self-care (01) | LOC: WOUND 12:22 | PROVIDERS: ATTENDING PHYSICIAN Registered Nurse; FAMILY PHYSICIAN Internal Medicine Geriatric Medicine | DX: T24.311A Burn of third degree of right thigh, initial encounter (principal); L03.115 Cellulitis of right lower limb; I73.9 Peripheral vascular disease, unspecified; Z79.01 Long term (current) use of anticoagulants; X10.0XXA Contact with hot drinks, initial encounter | CPT/HCPCS: 11042; 11045 ==

== ENCOUNTER → 2025-04-17 09:21 | Outpatient (REF) | payer MEDICARE, OTHER, SELFPAY ==
[2025-04-17 11:20] LABS: Hematocrit 25.9 % (37.0-47.0); Hemoglobin 7.6 g/dL (12.0-16.0); Mean Corp Hgb Conc. 29.3 g/dL (33.0-37.0); Mean Corpuscular Volume 85.2 fL (81.0-99.0); Nucleated Red Blood Cells % 0 %; Platelet Count 209 10^3/uL (130-400); Red Cell Dist. Width 15.8 % (11.5-14.5)
[2025-04-17 11:42] LABS: ALT (SGPT) 13 U/L (0-35); AST (SGOT) 17 U/L (14-36); Albumin 3.2 g/dl (3.5-5.0); Alkaline Phosphatase 54 U/L (38-126); Blood Urea Nitrogen 26 mg/dl (7-17); Calcium 8.5 mg/dl (8.4-10.2); Carbon Dioxide 27 mmol/L (22-30); Chloride 105 mmol/L (98-107); Glucose 89 mg/dl (70-99); HDL Cholesterol 65 mg/dl; LDL Cholesterol, Calculated 51 mg/dl; Potassium 4.6 mmol/L (3.5-5.1); Sodium 134 mmol/L (135-145); Total Protein 5.5 g/dl (6.3-8.2); Very Low Density Lipoprotein 18 mg/dl (0-30); eGFR > 60.00
[2025-04-17 11:57] LABS: Vitamin D, 25-OH*** 35.9 ng/mL (30-80)
== END ==
LOC: OLABN 09:21
PROVIDERS: ATTENDING PHYSICIAN Internal Medicine Geriatric Medicine
DX: I10 Essential (primary) hypertension (principal); E78.5 Hyperlipidemia, unspecified; E55.9 Vitamin D deficiency, unspecified
CPT/HCPCS: 36415; 80053; 80061; 82306; 85025